=== PATIENT | male | born 1965 | race Hispanic/Latino ===

== ENCOUNTER 2017-03-13 00:26 | Observation (INO) | payer MEDICARE ==
[2017-03-13 00:37] VITALS: BMI 25.2
[2017-03-13 01:03] LABS: BASO # 0.2 K/uL (0.0-0.2); BASO % 2.2 % (0.0-2.0); EOS # 0.2 K/uL (0.0-0.7); EOS % 1.8 % (0.0-4.0); HEMATOCRIT 44.8 % (35.0-51.0); LYMPH # 4.8 K/uL (1.0-4.3); LYMPH % 46.9 % (20.0-40.0); MEAN CELL VOLUME 93.6 fl (80.0-94.0); MEAN CORPUSCULAR HEMOGLOBIN 31.8 pg (27.0-31.0); MEAN PLATELET VOLUME 8.2 fl (7.2-11.7); MONO # 0.5 K/uL (0.0-0.8); MONO % 5.1 % (0.0-10.0); NEUT # 4.5 K/uL (1.8-7.0); WHITE BLOOD COUNT 10.2 K/uL (4.8-10.8)
[2017-03-13 01:10] LABS: ALCOHOL SERUM 131 mg/dl (0-10)
--- NOTE | 2017-03-13 01:38 | ED PDOC ---
HPI: Chest Pain Time Seen by Provider: 03/13/17 00:42 Chief Complaint (Nursing): Chest Pain Chief Complaint (Provider): Chest Pain History Per: Patient History/Exam Limitations: no limitations Onset/Duration Of Symptoms: Hrs (2x hours) Current Symptoms Are (Timing): Still Present Severity: Moderate Associated Symptoms: denies: Nausea, Dyspnea, Diaphoresis Additional Complaint(s): 51 year old male with a pertinent medical history of a "mild heart attack" presents to the ED with complaints of acute left sided chest pain and left arm pain that started 2x hours ago. He reports that the pain radiates from his neck to his left arm, down to his left hand and to the left side of his chest. He denies having any nausea, vomiting, diaphoresis, and shortness of breath. Patient admits to drinking alcohol earlier tonight, but denies any drug use. PMD: Not provided. Past Medical History Reviewed: Historical Data, Nursing Documentation, Vital Signs Vital Signs: Last Vital Signs Temp 99.1 F 03/13/17 00:37 Pulse 113 H 03/13/17 00:37 Resp 16 03/13/17 00:37 BP 119/72 03/13/17 00:37 Pulse Ox 95 03/13/17 01:45 - Medical History Other PMH: "mild heart attack" - Surgical History Surgical History: Appendectomy, Tonsillectomy - Family History Family History: States: Unknown Family Hx - Social History Current smoker - smoking cessation education provided: Yes Alcohol: Social Drugs: Denies - Home Medications Home Medications: Ambulatory Orders Medication Instructions Recorded Ibuprofen [Advil] 200 mg PO PRN PRN 03/17/15 oxyCODONE/Acetaminophen [Percocet 1 tab PO Q6H PRN #10 tab 03/17/15 5/325 mg Tab] - Allergies Allergies/Adverse Reactions: Allergies Allergy/AdvReac Type Severity Reaction Status Date / Time acetaminophen [From Tylenol] Allergy RASH Verified 03/13/17 00:37 Penicillins Allergy RASH Verified 03/13/17 00:37 Review of Systems ROS Statement: Except As Marked, All Systems Reviewed And Found Negative Cardiovascular: Positive for: Chest Pain (left sided). Negative for: Other ( diaphoresis) Respiratory: Negative for: Shortness of Breath Gastrointestinal: Negative for: Nausea, Vomiting Musculoskeletal: Positive for: Arm Pain (left), Hand Pain (left) Physical Exam - Reviewed Nursing Documentation Reviewed: Yes Vital Signs Reviewed: Yes - Physical Exam Appears: Positive for: Well, Non-toxic, No Acute Distress Head Exam: Positive for: ATRAUMATIC, NORMOCEPHALIC Skin: Positive for: Normal Color, Warm, Dry Eye Exam: Positive for: Normal appearance Neck: Positive for: Normal Cardiovascular/Chest: Positive for: Regular Rate, Rhythm, Chest Non Tender Respiratory: Positive for: Normal Breath Sounds. Negative for: Respiratory Distress Gastrointestinal/Abdominal: Positive for: Normal Exam, Soft. Negative for: Tenderness Extremity: Positive for: Normal ROM Neurologic/Psych: Positive for: Alert, Oriented (3x) - Laboratory Results Result Diagrams: 03/13/17 00:55 03/13/17 01:40 - ECG ECG: Positive for: Interpreted By Me, Viewed By Me ECG Rhythm: Positive for: Sinus Tachycardia (113 beats per minute). Negative for: ST/T Changes O2 Sat by Pulse Oximetry: 95 (RA) Pulse Ox Interpretation: Normal - Radiology X-Ray: Interpreted by Me, Viewed By Me X-Ray Interpretation: No Acute Disease Medical Decision Making Medical Decision Makin:43 Initial impression: 51 year old male with left sided cheat pain. Initial plan: * EKG * XRay chest ordered * labs * trial of IV toradol 10mg IV * reevaluation 00:31 EKG read and reviewed by provider. -sinus tachycardia at 113 beats per minute. -no ST/T wave abnormalities 2:30 Labs show no clinically significant abnormalities. Chest XRay shows no acute disease. Patient will be placed on observation for chest pain given history of smoking and "mild heart attack" in the past. Patient is diagnosed with chest pain. Scribe Attestation: Documented by Katy Ramos, acting as a scribe for Ludin Quispe MD. Provider Scribe Attestation: All medical record entries made by the Scribe were at my direction and personally dictated by me. I have reviewed the chart and agree that the record accurately reflects my personal performance of the history, physical exam, medical decision making, and the department course for this patient. I have also personally directed, reviewed, and agree with the discharge instructions and disposition. Disposition - Clinical Impression Clinical Impression: Chest pain - Disposition Disposition Time: 02:30 Condition: FAIR Forms: [employer] ([place]ien)
[2017-03-13] MEDS ORDERED: Albuterol-Ipratrop 3 mg / 0.5 (3 ml) UD INH STA ×2 (01:47→02:26)
[2017-03-13 02:05] LABS: BLOOD UREA NITROGEN 11 mg/dl (9-20); CALCIUM 9.7 mg/dL (8.4-10.2); CARBON DIOXIDE 18 mmol/L (22-30); CHLORIDE 112 mmol/L (98-107); GFR AFRICAN-AMERICAN > 60; GLUCOSE,RANDOM 97 mg/dL (75-110); POTASSIUM 4.3 MMOL/L (3.6-5.0); SODIUM 143 mmol/l (132-148)
[2017-03-13] MEDS ORDERED: Albuterol-Ipratrop 3 mg / 0.5 (3 ml) UD ONE (02:26)
[2017-03-13 03:23] VITALS: PULSE 89
[2017-03-13] MEDS ORDERED: Albuterol-Ipratrop 3 mg / 0.5 (3 ml) UD INH PRN (06:53)
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
[2017-03-13 08:15] VITALS: RESP 18; TEMP 97.8; O2SAT 97
--- NOTE | 2017-03-13 08:57 | RAD ---
HISTORY: chest pain COMPARISON: Pain FINDINGS: LUNGS: The lungs are well inflated and clear. PLEURA: No significant pleural effusion identified, no pneumothorax apparent. CARDIOVASCULAR: Normal. OSSEOUS STRUCTURES: No significant abnormalities. VISUALIZED UPPER ABDOMEN: Normal. OTHER FINDINGS: None. IMPRESSION: No active pulmonary disease.
[2017-03-13] MEDS ORDERED: Enoxaparin 40 mg Syringe SC SCH (09:00)
[2017-03-13] MEDS ORDERED: methylPREDNISolone 40 MG in Sodium Chloride 0.9% 50 ML IVPB SCH (09:00)
[2017-03-13 09:18] LABS: HEMATOCRIT 44.1 % (35.0-51.0); MEAN CELL VOLUME 94.4 fl (80.0-94.0); MEAN CORPUSCULAR HEMOGLOBIN 31.7 pg (27.0-31.0); MEAN CORPUSCULAR HGB CONC 33.5 g/dL (33.0-37.0); WHITE BLOOD COUNT 9.5 K/uL (4.8-10.8)
[2017-03-13 09:34] LABS: BLOOD UREA NITROGEN 16 mg/dl (9-20); CALCIUM 9.7 mg/dL (8.4-10.2); CARBON DIOXIDE 19 mmol/L (22-30); CHLORIDE 107 mmol/L (98-107); CHOLESTEROL 259 mg/dL (0-199); GFR AFRICAN-AMERICAN > 60; GLUCOSE,RANDOM 150 mg/dL (75-110); POTASSIUM 3.9 MMOL/L (3.6-5.0); SODIUM 139 mmol/l (132-148)
[2017-03-13 10:02] LABS: THYROID STIMULATING HORMONE 0.44 mIU/ML (0.46-4.68)
[2017-03-13 12:12] VITALS: BP 138/83
--- NOTE | 2017-03-14 11:03 | CARD ---
APPROVED REPORT EKG Measurement Heart [id number] [place] 128P [id number] <Conclusion> Sinus tachycardia Right axis deviation Abnormal ECG
== END 2017-03-13 09:10 | disposition left against medical advice (07) ==
LOC: H.ER 00:26 → H.ERHOLD 02:27 → H.TEL 03:05
PROVIDERS: ADMIT Internal Medicine; ATTEND Internal Medicine
DX: R07.89 Other chest pain (principal); E78.5 Hyperlipidemia, unspecified; F17.200 Nicotine dependence, unspecified, uncomplicated; I25.2 Old myocardial infarction; Z90.49 Acquired absence of other specified parts of digestive tract; M19.90 Unspecified osteoarthritis, unspecified site; M79.602 Pain in left arm; R00.0 Tachycardia, unspecified
CPT/HCPCS: 71010; 80048; 80061; 84443; 84484; 85025; 85027; 93005; 94640; 96374; 99284; G0378; G0480; J1885; J2930

== ENCOUNTER 2017-03-26 02:28 | Emergency (ER) | payer MEDICARE ==
[2017-03-26 02:46] VITALS: BMI 24.2
[2017-03-26] MEDS ORDERED: Albuterol-Ipratrop 3 mg / 0.5 (3 ml) UD INH STA ×3 (02:48→02:49)
[2017-03-26 02:57] VITALS: O2SAT 98
[2017-03-26] MEDS ORDERED: Albuterol-Ipratrop 3 mg / 0.5 (3 ml) UD ONE (02:58)
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
[2017-03-26 04:10] LABS: BASO # 0.1 K/uL (0.0-0.2); EOS # 0.2 K/uL (0.0-0.7); HEMATOCRIT 44.4 % (35.0-51.0); LYMPH % 36.4 % (20.0-40.0); MEAN CELL VOLUME 92.3 fl (80.0-94.0); MEAN CORPUSCULAR HEMOGLOBIN 31.6 pg (27.0-31.0); MEAN CORPUSCULAR HGB CONC 34.3 g/dL (33.0-37.0); MONO # 0.6 K/uL (0.0-0.8); MONO % 5.5 % (0.0-10.0); NEUT # 6.1 K/uL (1.8-7.0); NEUT % 55.1 % (50.0-75.0); RED CELL DISTRIBUTION WIDTH 13.2 % (11.5-14.5); WHITE BLOOD COUNT 11.1 K/uL (4.8-10.8)
[2017-03-26 04:22] LABS: PARTIAL THROMBOPLASTIN TIME 27.1 Seconds (25.6-37.1)
[2017-03-26 04:35] LABS: GLUCOSE,RANDOM 95 mg/dL (75-110)
[2017-03-26 04:36] LABS: BLOOD UREA NITROGEN 18 mg/dl (9-20); CALCIUM 9.4 mg/dL (8.4-10.2); CARBON DIOXIDE 16 mmol/L (22-30); CHLORIDE 113 mmol/L (98-107); GFR AFRICAN-AMERICAN > 60; POTASSIUM 4.1 MMOL/L (3.6-5.0); SODIUM 143 mmol/l (132-148)
[2017-03-26 04:48] VITALS: BP 142/80; PULSE 96; RESP 18; TEMP 97.9
[2017-03-26 05:22] LABS: ALCOHOL SERUM 96 mg/dl (0-10)
--- NOTE | 2017-03-26 10:01 | RAD ---
PROCEDURE: CHEST RADIOGRAPH, 1 VIEW. Portable study 03:45. HISTORY: Chest pain, shortness of breath. COMPARISON: Eight hundred twenty-seven 1017. FINDINGS: LUNGS: Clear. PLEURA: No pneumothorax or pleural fluid seen. CARDIOVASCULAR: Normal. OSSEOUS STRUCTURES: No significant abnormalities. VISUALIZED UPPER ABDOMEN: Normal. OTHER FINDINGS: None. IMPRESSION: No active disease. No acute/significant interval changes. No preliminary report provided by emergency department personnel.
--- NOTE | 2017-03-28 11:23 | CARD ---
APPROVED REPORT EKG Measurement Heart [id number] <Conclusion> Sinus tachycardia Otherwise normal ECG
== END 2017-03-26 04:59 ==
LOC: H.ER 02:28
DX: J44.1 Chronic obstructive pulmonary disease with (acute) exacerbation (principal); Z79.82 Long term (current) use of aspirin; Z88.0 Allergy status to penicillin; F17.210 Nicotine dependence, cigarettes, uncomplicated; J45.901 Unspecified asthma with (acute) exacerbation
CPT/HCPCS: 71010; 80048; 83880; 84484; 85025; 85610; 85730; 93005; 94640; 99283; G0480

== ENCOUNTER 2017-07-12 21:14 | Emergency (ER) | payer MEDICARE ==
[2017-07-12 21:15] VITALS: BMI 24.2
[2017-07-12 21:29] VITALS: BP 155/68; TEMP 97.4; O2SAT 99
[2017-07-12] MEDS ORDERED: Albuterol-Ipratrop 3 mg / 0.5 (3 ml) UD ONE (21:50)
--- NOTE | 2017-07-12 21:53 | ED PDOC ---
HPI: Chest Pain Time Seen by Provider: 07/12/17 21:20 Chief Complaint (Nursing): Chest Pain Chief Complaint (Provider): Chest pain History Per: Patient History/Exam Limitations: no limitations Onset/Duration Of Symptoms: Mins (20) Additional Complaint(s): Patient is a 52 y/o male with no significant past medical history presenting to the emergency department for chest pain and shortness of breath that started 20 minutes prior to arrival. Admits to smoking a pack a day. Denies fever, cough, or other complaints. PCP: none provided. Past Medical History Reviewed: Historical Data, Nursing Documentation, Vital Signs Vital Signs: Last Vital Signs Temp 97.4 F L 07/12/17 21:27 Pulse 120 H 07/12/17 22:05 Resp 20 07/12/17 21:57 BP 155/68 H 07/12/17 21:27 Pulse Ox 99 07/13/17 06:26 - Medical History PMH: Arthritis Denies: Chronic Kidney Disease - Surgical History Surgical History: Appendectomy, Tonsillectomy Other surgeries: jaw surgery - Family History Family History: States: Unknown Family Hx - Social History Current smoker - smoking cessation education provided: Yes Ex-Smoker (has not smoked in the last 12 months): No Alcohol: Other Drugs: Denies - Home Medications Home Medications: Ambulatory Orders Medication Instructions Recorded Aspirin [Adult Low Dose Aspirin EC] 81 mg PO DAILY 03/13/17 Albuterol HFA [Ventolin HFA 90 2 puff IH [id number] #1 puff 03/26/17 mcg/actuation (8 g)] predniSONE [predniSONE Tab] 60 mg PO DAILY #9 tab 03/26/17 - Allergies Allergies/Adverse Reactions: Allergies Allergy/AdvReac Type Severity Reaction Status Date / Time acetaminophen [From Tylenol] Allergy RASH Verified 03/13/17 00:37 Penicillins Allergy RASH Verified 03/13/17 00:37 Review of Systems ROS Statement: Except As Marked, All Systems Reviewed And Found Negative Constitutional: Negative for: Fever Cardiovascular: Positive for: Chest Pain Respiratory: Positive for: Shortness of Breath. Negative for: Cough Neurological: Positive for: Numbness (pins and needles on left arm and leg) Physical Exam - Reviewed Nursing Documentation Reviewed: Yes Vital Signs Reviewed: Yes - Physical Exam Appears: Positive for: Uncomfortable Head Exam: Positive for: ATRAUMATIC, NORMAL INSPECTION, NORMOCEPHALIC Skin: Positive for: Normal Color, Warm, Dry Eye Exam: Positive for: Normal appearance Neck: Positive for: Normal, Supple Cardiovascular/Chest: Positive for: Regular Rate, Rhythm Respiratory: Positive for: Rhonchi, Wheezing Gastrointestinal/Abdominal: Positive for: Normal Exam, Soft Extremity: Positive for: Normal ROM Neurologic/Psych: Positive for: Alert, Oriented (x3) - ECG O2 Sat by Pulse Oximetry: 99 (RA) Pulse Ox Interpretation: Normal Medical Decision Making Medical Decision Making: Time: 21:51 Initial impression: shortness of breath and chest pain Initial plan: CMP Troponin CBC Methylprednisolone 125 mg IVP Reevaluation EKG sinus tachycardai 21:50 Patient left without completed treatment. pt left the ER before getting medications. Scribe Attestation: Documented by Shelby Gloevr, acting as a scribe for Maria E Haddad MD. Provider Scribe Attestation: All medical record entries made by the Scribe were at my direction and personally dictated by me. I have reviewed the chart and agree that the record accurately reflects my personal performance of the history, physical exam, medical decision making, and the department course for this patient. I have also personally directed, reviewed, and agree with the discharge instructions and disposition. Disposition - Clinical Impression Clinical Impression: Shortness of breath - Patient ED Disposition Is Patient to be Admitted: No - Disposition Disposition: Left W/O Treatment Disposition Time: 21:30 Condition: STABLE Forms: [employer] (Sing[place]an)
[2017-07-12 22:00] VITALS: RESP 20
[2017-07-12 22:08] VITALS: PULSE 120
== END 2017-07-12 22:08 | disposition left against medical advice (07) ==
LOC: H.ER 21:14
DX: R06.02 Shortness of breath (principal); R07.89 Other chest pain; F17.210 Nicotine dependence, cigarettes, uncomplicated; Z79.82 Long term (current) use of aspirin; Z88.0 Allergy status to penicillin

== ENCOUNTER 2017-08-22 08:19 | Observation (INO) | payer MEDICARE ==
[2017-08-22 08:19] VITALS: BMI 24.2
[2017-08-22] MEDS ORDERED: Albuterol-Ipratrop 3 mg / 0.5 (3 ml) UD IH STA ×2 (08:47→16:23)
[2017-08-22 09:16] LABS: BASO # 0.1 K/uL (0.0-0.2); BASO % 1.5 % (0.0-2.0); EOS # 0.3 K/uL (0.0-0.7); EOS % 2.7 % (0.0-4.0); HEMOGLOBIN 15.1 g/dL (12.0-18.0); LYMPH # 3.3 K/uL (1.0-4.3); LYMPH % 35.2 % (20.0-40.0); MEAN CELL VOLUME 92.7 fl (80.0-94.0); MEAN CORPUSCULAR HGB CONC 34.5 g/dL (33.0-37.0); MEAN PLATELET VOLUME 8.2 fl (7.2-11.7); MONO # 0.6 K/uL (0.0-0.8); MONO % 6.9 % (0.0-10.0); NEUT % 53.7 % (50.0-75.0); NRBC % 0.2 % (0.0-0.0); RBC 4.72 Mil/uL (4.40-5.90); RED CELL DISTRIBUTION WIDTH 13.2 % (11.5-14.5); WHITE BLOOD COUNT 9.3 K/uL (4.8-10.8)
[2017-08-22 09:27] LABS: BLOOD UREA NITROGEN 13 mg/dl (9-20); CALCIUM 9.4 mg/dL (8.4-10.2); GFR AFRICAN-AMERICAN > 60; GFR NON-AFRICAN AMERICAN > 60
[2017-08-22 09:38] LABS: B-TYPE NATRIURETIC PEPTIDE 52.8 pg/ml (0-900)
[2017-08-22 09:42] LABS: INR 0.9 (0.9-1.2); PARTIAL THROMBOPLASTIN TIME 27.2 Seconds (25.6-37.1); PROTHROMBIN TIME 9.8 Seconds (9.8-13.1)
--- NOTE | 2017-08-22 10:48 | RAD ---
HISTORY: chest pain COMPARISON: Chest dated 03/26/2017. FINDINGS: LUNGS: No active pulmonary disease. PLEURA: No significant pleural effusion identified, no pneumothorax apparent. CARDIOVASCULAR: Normal. OSSEOUS STRUCTURES: No significant abnormalities. VISUALIZED UPPER ABDOMEN: Normal. OTHER FINDINGS: None. IMPRESSION: No active disease.
[2017-08-22] MEDS ORDERED: Metoprolol Succinate 25 mg XL Tab PO STA (11:11)
--- NOTE | 2017-08-22 15:39 | ED PDOC ---
HPI: General Adult Time Seen by Provider: 08/22/17 08:31 Chief Complaint (Nursing): Chest Pain Chief Complaint (Provider): Chest Pain History Per: Patient History/Exam Limitations: no limitations Onset/Duration Of Symptoms: Hrs (x 4) Additional Complaint(s): Sanya is a 52 year old male, with a history of Asthma and Tobacco use, who presents to the emergency department with left-sided chest pain since 04:00 am. Patient states pain feel like squeezing in nature that radiates to left-arm. Patient reports numbness to left arm. (+) wheezing. No shortness of breath, cough, fever, chills or body aches. Pain is at rest and has not taken anything for it. Patient reports he takes his albuterol daily, but forgot to use his pump this morning. PMD: No Family Provider Past Medical History Reviewed: Historical Data, Nursing Documentation, Vital Signs Vital Signs: Last Vital Signs Temp 97.1 F L 08/22/17 12:01 Pulse 105 H 08/22/17 15:48 Resp 18 08/22/17 15:41 BP 153/98 H 08/22/17 15:41 Pulse Ox 98 08/22/17 15:48 - Medical History PMH: Arthritis, Asthma Denies: Chronic Kidney Disease - Surgical History Surgical History: Appendectomy, Tonsillectomy - Family History Family History: States: Unknown Family Hx - Home Medications Home Medications: Ambulatory Orders Medication Instructions Recorded Aspirin [Adult Low Dose Aspirin EC] 81 mg PO DAILY 03/13/17 Nitroglycerin [Nitromist] 1 spray SL Q5MIN PRN 08/22/17 - Allergies Allergies/Adverse Reactions: Allergies Allergy/AdvReac Type Severity Reaction Status Date / Time acetaminophen [From Tylenol] Allergy RASH Verified 03/13/17 00:37 Penicillins Allergy RASH Verified 03/13/17 00:37 Review of Systems ROS Statement: Except As Marked, All Systems Reviewed And Found Negative Constitutional: Negative for: Fever, Chills, Other (Body aches) Cardiovascular: Positive for: Chest Pain (Left-sided chest pain that radaites to left arm) Respiratory: Negative for: Cough, Shortness of Breath Neurological: Positive for: Numbness (Left arm) Physical Exam - Reviewed Nursing Documentation Reviewed: Yes Vital Signs Reviewed: Yes - Physical Exam Appears: Positive for: Non-toxic Head Exam: Positive for: ATRAUMATIC, NORMAL INSPECTION, NORMOCEPHALIC Skin: Positive for: Normal Color, Warm, Dry Eye Exam: Positive for: Normal appearance ENT: Positive for: Normal ENT Inspection Neck: Positive for: Normal Cardiovascular/Chest: Positive for: Regular Rate, Rhythm, Other ([place] to left chest wall) Respiratory: Positive for: Wheezing (tRACE). Negative for: Respiratory Distress Gastrointestinal/Abdominal: Positive for: Normal Exam Extremity: Positive for: Normal ROM Neurologic/Psych: Positive for: Alert, Oriented (x 3), Other (Sensation is intact) - Laboratory Results Result Diagrams: 08/22/17 09:00 08/22/17 09:00 - ECG ECG Rhythm: Positive for: Sinus Tachycardia (otherwise normal ECG) Rate: 105 O2 Sat by Pulse Oximetry: 98 (RA) Pulse Ox Interpretation: Normal Medical Decision Making Medical Decision Making: Time: 08:45 DDx: Chest pain r/o ACS vs MSK; Asthma Plan: - EKG - B-Type Natriuretic Peptide - BMP - Troponin I - CBC - Partial Thomboplastin Time - Prothrombin Time - Aspirin 325 mg PO STAT - Duoneb 3 mg/0.5 mg (3 ml) UD - Nitrostat SL Tab - Nebulizer Treatment Time: 09:46 - Portable Chest X-Ray Time: 10:46 Chest X-Ray IMPRESSION: No active disease. Time: 11:09 - Troponin negative. CXR negative. - Case discussed with Dr. Caballero, Cardiology , who recommends Echo, and Toprol 25mg XL. - Patient was given Dilaudid 0.5mg IV for pain which helped improve his pain. Time: 12:09 - Echo Comp with M Mode/C Flow/ DOP Stat ordered. Cardiology will f/u. 4:25pm - Patient is c/o sob, wheezing that feels like his asthma. No wheezing. Albuterol/Atrovent ordered. He states he uses his inhaler 2x daily. Scribe Attestation: Documented by Akbar Jacob, acting as a scribe for Andreas Sanchez DO Provider Scribe Attestation: All medical record entries made by the Scribe were at my direction and personally dictated by me. I have reviewed the chart and agree that the record accurately reflects my personal performance of the history, physical exam, medical decision making, and the department course for this patient. I have also personally directed, reviewed, and agree with the discharge instructions and disposition. Disposition - Clinical Impression Clinical Impression: Acute chest pain, Asthma - Disposition Disposition Time: 11:09 Condition: FAIR - POA Present On Arrival: None
[2017-08-22] MEDS ORDERED: Albuterol-Ipratrop 3 mg / 0.5 (3 ml) UD ONE (16:25)
[2017-08-22 20:01] VITALS: RESP 18
--- NOTE | 2017-08-22 20:34 | CP.PCM.CON ---
History of Present Illness - History of Present Illness History of Present Illness: CHEST SQUEEZING X SEVERAL DAYS. PT STATES LEFT CHEST TIGHTNESS, WAXING AND WEANING BUT NEVER RESOLVING COMPLETELY. DISCOMFORT RADIATES TO LUE AND SHOULDER. PT STATES IT IS NOT ASSOC WITH AMBULATION BUT RATHER MORE WHEN HE IS WHEEZING. HE DOES HAVE RAD AND IS ON HOME TREATMENT. PT HAS HAD SIMILAR SYMPTOMS MULTIPLE YEARS AGO, HOWEVER NOT SURE WHAT TESTING HE HAD DONE. PT TAKES ASA AT HOME AND USES SL NTG. STATES THE NTG DOES DECREASE THE DISCOMFORT BUT DOESNT TAKE IT AWAY. HE HAS A LONG HX OF TOBACCO USE AND HX OF HTN. Past Patient History - Infectious Disease Hx of Infectious Diseases: None - Past Medical History & Family History Past Medical History?: Yes - Past Social History Smoking Status: Heavy Smoker > 10 Cigarettes Daily - CARDIAC Hx Cardiac Disorders: Yes Hx Heart Attack: Yes (x2) Other/Comment: mild heart attack x2 - PULMONARY Hx Asthma: Yes Hx Chronic Obstructive Pulmonary Disease (COPD): Yes - NEUROLOGICAL Hx Neurological Disorder: No - HEENT Hx HEENT Problems: No - RENAL Hx Chronic Kidney Disease: No - ENDOCRINE/METABOLIC Hx Endocrine Disorders: No - HEMATOLOGICAL/ONCOLOGICAL Hx Blood Disorders: No - INTEGUMENTARY Hx Dermatological Problems: No - MUSCULOSKELETAL/RHEUMATOLOGICAL Hx Arthritis: Yes Hx Falls: No - GASTROINTESTINAL Hx Gastrointestinal Disorders: No - GENITOURINARY/GYNECOLOGICAL Hx Genitourinary Disorders: No - PSYCHIATRIC Hx Psychophysiologic Disorder: No Hx Substance Use: Yes - SURGICAL HISTORY Hx Appendectomy: Yes Hx Tonsillectomy: Yes Other/Comment: elbow and jaw sugery - ANESTHESIA Hx Anesthesia: Yes Hx Anesthesia Reactions: No Hx Malignant Hyperthermia: No Meds Allergies/Adverse Reactions: Allergies Allergy/AdvReac Type Severity Reaction Status Date / Time acetaminophen [From Tylenol] Allergy RASH Verified 03/13/17 00:37 Penicillins Allergy RASH Verified 03/13/17 00:37 - Medications Medications: Current Medications Carvedilol (Coreg) 6.25 mg PO Q12 ERENDIRA Enalapril Maleate (Vasotec) 10 mg PO BID ERENDIRA Nitroglycerin (Nitrostat Sl Tab) 0.4 mg SL Q5M PRN PRN Reason: Pain, Mild (1-3) Last Admin: 08/22/17 10:36 Dose: 0.4 mg Results - Vital Signs Recent Vital Signs: Last Vital Signs Temp 98.1 F 08/22/17 20:00 Pulse 85 08/22/17 20:00 Resp 18 08/22/17 20:00 BP 140/92 H 08/22/17 20:00 Pulse Ox 99 08/22/17 20:00 - Labs Result Diagrams: 08/22/17 09:00 08/22/17 09:00 Labs: Laboratory Results - last 24 hr 08/22/17 08/22/17 08/22/17 09:00 09:00 09:00 WBC 9.3 RBC 4.72 Hgb 15.1 Hct 43.7 MCV 92.7 MCH 32.0 H MCHC 34.5 RDW 13.2 Plt Count 251 MPV 8.2 Neut % (Auto) 53.7 Lymph % (Auto) 35.2 [place] % (Auto) 6.9 Eos % (Auto) 2.7 Baso % (Auto) 1.5 Neut # (Auto) 5.0 Lymph # (Auto) 3.3 [place] # (Auto) 0.6 Eos # (Auto) 0.3 Baso # (Auto) 0.1 PT 9.8 INR 0.9 APTT 27.2 Sodium 141 Potassium 3.6 Chloride 109 H Carbon Dioxide 24 Anion Gap 12 BUN 13 Creatinine 1.0 Est GFR ( Amer) > 60 Est GFR (Non-Af Amer) > 60 Random Glucose 109 Calcium 9.4 Troponin I < 0.0120 NT-Pro-B Natriuret Pep 52.8 08/22/17 18:54 WBC RBC Hgb Hct MCV MCH MCHC RDW Plt Count MPV Neut % (Auto) Lymph % (Auto) [place] % (Auto) Eos % (Auto) Baso % (Auto) Neut # (Auto) Lymph # (Auto) [place] # (Auto) Eos # (Auto) Baso # (Auto) PT INR APTT Sodium Potassium Chloride Carbon Dioxide Anion Gap BUN Creatinine Est GFR ( Amer) Est GFR (Non-Af Amer) Random Glucose Calcium Troponin I < 0.0120 NT-Pro-B Natriuret Pep - EKG Data EKG Interpreted by: Myself EKG shows normal: Sinus rhythm Rate: Normal Assessment & Plan (1) HTN (hypertension) Status: Acute (2) Acute chest pain Status: Acute (3) Asthma Status: Acute (4) Shortness of breath Status: Acute - Assessment and Plan (Free Text) Plan: PT RULED OUT FOR AR. ECHO SHOWS NML EF AND GRADE 1 DIASTOLIC DYSFUNCTION. PT HAS SEVERAL RISK FACTORS FOR CV DISEASE. WILL HAVE PT UNDERGO ST IF HE CAN EXERCISE. PT DOES HAVE MILD WHEEZING WHICH HE STATES IS CHRONIC. SHOULD BE NOTED HE IS NOT A GOOD HISTORIAN. CHANGED METOPROLOL TO COREG GIVEN RAD CONTINUE ASA CONTINUE ACEI MONITOR LYTES AND LIPIDS 55 MIN TOTAL CARE TIME.
[2017-08-22] MEDS ORDERED: methylPREDNISolone 75 MG in Sodium Chloride 0.9% 50 ML IV STA (20:44)
[2017-08-22] MEDS ORDERED: Metoprolol Succinate 25 mg XL Tab PO SCH (21:00)
[2017-08-22] MEDS ORDERED: MethylPREDNISolone 40 mg Vial IVP SCH (21:45)
[2017-08-22] MEDS ORDERED: methylPREDNISolone 40 MG in Sodium Chloride 0.9% 50 ML IV SCH (22:00)
[2017-08-23] MEDS ORDERED: Albuterol-Ipratrop 3 mg / 0.5 (3 ml) UD INH SCH
[2017-08-23 00:40] VITALS: BP 143/85; PULSE 67; TEMP 98; O2SAT 98
--- NOTE | 2017-08-23 08:46 | CARD ---
APPROVED REPORT EKG Measurement Heart [id number] <Conclusion> Sinus tachycardia Otherwise normal ECG
--- NOTE | 2017-08-23 14:43 | CARD ---
APPROVED REPORT EXAM: Two-dimensional and M-mode echocardiogram with Doppler and color Doppler. Other Information Quality : GoodRhythm : NSR INDICATION Chest Pain 2D DIMENSIONS IVSd0.90 (0.7-1.1cm)LVDd4.19 (3.9-5.9cm) LVOT Diameter2.21 (1.8-2.4cm)PWd0.87 (0.7-1.1cm) IVSs1.21 (0.8-1.2cm)LVDs3.47 (2.5-4.0cm) FS (%) 17.2 %PWs1.02 (0.8-1.2cm) M-Mode DIMENSIONS Left Atrium (MM)3.88 (2.5-4.0cm)IVSd1.06 (0.7-1.1cm) Aortic Root2.91 (2.2-3.7cm)LVDd5.09 (4.0-5.6cm) Aortic Cusp Exc.2.18 (1.5-2.0cm)PWd0.94 (0.7-1.1cm) IVSs1.38 cmFS (%) 45 % LVDs2.82 (2.0-3.8cm)PWs1.29 cm Mitral Valve MV E Ftpfzkdi42.1cm/sMV DECEL [id number] A Fgwspihz83.3cm/s MV VWB39pjH/A ratio1.1MVA (PHT)4.52cm2 TDI Lateral E' Peak V10.84cm/sMedial E' Peak V6.76cm/sE/Lateral E'6.4 E/Medial E'10.2 Pulmonary Valve PV Peak Nnxkndyf785.0cm/s LEFT VENTRICLE The left ventricle is normal size. There is normal left ventricular wall thickness. The left ventricular function is normal. The left ventricular ejection fraction is within the normal range. The Ejection Fraction is 65-70%. There is normal LV segmental wall motion. The left ventricular diastolic function is normal. RIGHT VENTRICLE The right ventricle is normal size. The right ventricular systolic function is normal. ATRIA The left atrium size is normal. The right atrium size is normal. AORTIC VALVE The aortic valve is normal in structure. No aortic regurgitation is present. There is no aortic valvular stenosis. MITRAL VALVE The mitral valve is normal in structure. There is no mitral valve stenosis. There is no mitral valve regurgitation noted. TRICUSPID VALVE The tricuspid valve is normal in structure. There is no tricuspid valve regurgitation noted. There is no tricuspid valve stenosis. PULMONIC VALVE The pulmonary valve is normal in structure. There is no pulmonic valvular regurgitation. GREAT VESSELS The aortic root is normal in size. The IVC is normal in size and collapses >50% with inspiration. PERICARDIAL EFFUSION The pericardium appears normal. <Conclusion> The left ventricle is normal size. The left ventricular function is normal. The left ventricular ejection fraction is within the normal range. The Ejection Fraction is 65-70%.
== END 2017-08-23 00:30 | disposition left against medical advice (07) ==
LOC: H.ER 08:19 → H.ERHOLD 11:09 → H.TEL 17:32
PROVIDERS: ADMIT Internal Medicine Pulmonary Disease; ATTEND Internal Medicine Pulmonary Disease
DX: R07.9 Chest pain, unspecified (principal); J45.909 Unspecified asthma, uncomplicated; I10 Essential (primary) hypertension; F17.210 Nicotine dependence, cigarettes, uncomplicated; I25.2 Old myocardial infarction; Z79.82 Long term (current) use of aspirin; Z88.6 Allergy status to analgesic agent; Z88.0 Allergy status to penicillin
CPT/HCPCS: 71045; 80048; 83880; 84484; 85025; 85610; 85730; 93005; 93306; 94150; 94640; 96374; 99285; G0378; J1170; J2930